=== PATIENT | male | born 1985 | race Caucasian/White ===

== ENCOUNTER 2017-04-12 12:38 | Emergency (ER) | payer OTHER ==
[2017-04-12 13:59] LABS: BASOPHIL% 0.2 % (0-2.5); EOSINOPHIL# 0.4 X10e3 (0-0.7); EOSINOPHIL% 3.3 % (0.0-7.0); HEMATOCRIT 42.7 % (38.0-50.0); HEMOGLOBIN 13.5 gm/dL (13.0-16.0); LYMPHOCYTE# 2.3 X10e3 (1.0-3.5); MEAN CELL VOLUME 73.7 FL (83-96); MEAN CORPUSCULAR HEMOGLOBIN 23.4 PG (28-34); MEAN CORPUSCULAR HGB CONC 31.7 g/dL (30-36); MEAN PLATELET VOLUME 7.7 FL (6.5-11.5); MONOCYTE# 0.6 X10e3 (0-1.0); MONOCYTE% 5.6 % (3.0-12.0); NEUTROPHIL# 7.6 X10e3 (1.5-7.1); NEUTROPHIL% 69.9 % (40-75); PLATELET COUNT 208 X10e3 (140-420); RED BLOOD COUNT 5.79 X10e (3.90-5.60); RED CELL DISTRIBUTION WIDTH 16.9 % (11.0-15.5); WHITE BLOOD COUNT 10.8 X10e3 (4.0-10.5)
[2017-04-12 14:01] LABS: DIFF IND NO
[2017-04-12 14:24] LABS: ALKALINE PHOSPHATASE 57 U/L (32-92); ALT (SGPT) 34 U/L (10-40); AMYLASE 16 U/L (0-46); AST (SGOT) 21 U/L (10-42); BILIRUBIN,TOTAL 0.5 mg/dL (0.2-2.0); BLOOD UREA NITROGEN 19 mg/dL (9-23); BUN/CREATININE RATIO 21.11; CALCIUM SERUM 9.2 mg/dL (8.4-10.2); CARBON DIOXIDE 25 mmol/L (22-31); CHLORIDE 107 mmol/L (100-111); CREATININE SERUM 0.9 mg/dL (0.6-1.4); GLOM FILT RATE Estimated 114.2 mL/min (>60); GLUCOSE FASTING 105 mg/dL (70-110); LIPASE 21 U/L (22-51); POTASSIUM 4.7 mmol/L (3.5-5.1); PROTEIN TOTAL SERUM 7.4 g/dL (6.0-8.3); SODIUM 137 mmol/L (135-145)
[2017-04-12 14:25] LABS: BILIRUBIN, DIRECT <0.1 mg/dL (0.0-0.2); BILIRUBIN,INDIRECT 0.4 mg/dL (0.0-0.9)
[2017-04-12 15:06] LABS: URINE SOURCE CLEAN CATCH
[2017-04-12 15:11] LABS: URINE APPEARANCE CLEAR; URINE BILIRUBIN NEG (NEG); URINE BLOOD NEG (NEG); URINE COLOR YELLOW; URINE GLUCOSE NEG (NEG); URINE KETONE NEG (NEG); URINE LEUKOCYTE ESTERASE NEG (NEG); URINE NITRATE NEG (NEG); URINE PROTEIN NEG (NEG); URINE SPECIFIC GRAVITY 1.027 (1.003-1.035); URINE UROBILINOGEN 0.2 MG/DL (NEG)
[2017-04-12 15:23] LABS: AMPHETAMINE POS (NEG); BARBITURATES NEG (NEG); BENZODIAZEPINES NEG (NEG); COCAINE NEG (NEG); MARIJUANA POS (NEG); OPIATES NEG (NEG); TRICYCLIC ANTIDEPRESSANTS NEG (NEG); U METHADONE POS (NEG)
[2017-04-12 15:24] LABS: CULTURE INDICATED? NO
== END 2017-04-12 16:29 | disposition home or self-care (01) ==
LOC: CED 12:38
PROVIDERS: Emergency Medicine
DX: R10.9 Unspecified abdominal pain (principal)
CPT/HCPCS: 80048; 80076; 80307; 81003; 82150; 83690; 85025; 96374; 99284; J2405

== ENCOUNTER 2017-05-05 04:27 | Emergency (ER) | payer OTHER ==
--- NOTE | ~2017-05-05 | CT99 ---
[facility] A Service of [facility] / [facility] RADIOLOGY TEXT RESULTS PATIENT: CHATO KIRK II [id number] : [birth year] UNIT #: [id number] AGE: [address]: Jose Snyder MD SEX: M ORDER DR: [id number] [facility] [address] [place], [place] [address] [id number] E MR#: [id number] [facility] #: [id number] NAME: CHATO KIRK : 1985 SEX: M STUDY DATE/TIME: 05/05/2017 7:25 UNIT: [facility] ROOM: STUDY DESCRIPTION: CT Maxillofacial Area W Cont Attending Physician: Jose Snyder M.D. Ordering Physician: Jacob Jain D.O. MEDICAL IMAGING REPORT This report is preliminary unless electronic signature is present EXAM CT maxillofacial bones. HISTORY Left upper tooth pain, swelling x40 days. Facial swelling on the left times 2 days. TECHNIQUE Thin section axial images performed through the maxillofacial bones following IV contrast. This CT exam was performed with one or more of the following radiation dose reduction techniques: automatic exposure control, adjustment of mA and/or kV according to patient size, and iterative reconstruction. FINDINGS There is severe multifocal periodontal disease and dental caries. This is most prominent involving the left upper molars with extensive destruction of teeth #17 and 18 and probably tooth 14 of the left mandibular molar. There is also extensive destruction of the right upper molars with evidence of periodontal disease and there is absence of teeth #1 and 2. Soft tissue swelling noted over the left facial soft tissues but no evidence of fluid collection or abscess. Minimal left maxillary sinus mucosal disease. Skull base unremarkable. Several moderately enlarged left submandibular lymph nodes identified, most likely reactive. Shotty anterior and posterior cervical lymphadenopathy. IMPRESSION Severe periodontal disease and extensive multifocal dental caries. Extensive destruction involving the left upper molars and one of the left lower molars compatible with severe dental caries and periodontal disease. No discrete periodontal abscess or drainable fluid collections identified, [facility] A Service of [facility] / [facility] RADIOLOGY TEXT RESULTS PATIENT: CHATO KIRK II [facility] [id number] : [birth year] UNIT #: [id number] AGE: [address]: Jose Snyder MD SEX: M ORDER DR: though there is extensive cellulitis in the overlying soft tissues as well as some reactive lymphadenopathy. Dictated by... Keaton Tijerina M.D. THIS IS AN ELECTRONICALLY VERIFIED REPORT Keaton Tijerina M.D. at 05/09/2017 9:27 AM MARCELA/gabriel TD: 05/05/2017 10:20 JOB #: [id number] MEDICAL IMAGING REPORT Page 1 of 1 COPY
[2017-05-05 06:29] LABS: BASOPHIL% 0.3 % (0-2.5); EOSINOPHIL# 0.4 X10e3 (0-0.7); EOSINOPHIL% 2.4 % (0.0-7.0); HEMATOCRIT 39.5 % (38.0-50.0); HEMOGLOBIN 12.7 gm/dL (13.0-16.0); LYMPHOCYTE# 2.9 X10e3 (1.0-3.5); LYMPHOCYTE% 19.8 % (17.0-45.0); MEAN CELL VOLUME 72.8 FL (83-96); MEAN CORPUSCULAR HEMOGLOBIN 23.4 PG (28-34); MEAN CORPUSCULAR HGB CONC 32.2 g/dL (30-36); MEAN PLATELET VOLUME 7.5 FL (6.5-11.5); MONOCYTE# 0.7 X10e3 (0-1.0); MONOCYTE% 5.1 % (3.0-12.0); NEUTROPHIL# 10.6 X10e3 (1.5-7.1); NEUTROPHIL% 72.4 % (40-75); PLATELET COUNT 201 X10e3 (140-420); RED BLOOD COUNT 5.43 X10e (3.90-5.60); RED CELL DISTRIBUTION WIDTH 17.1 % (11.0-15.5); WHITE BLOOD COUNT 14.6 X10e3 (4.0-10.5)
[2017-05-05 06:31] LABS: DIFF IND NO
[2017-05-05 07:00] LABS: CREATININE SERUM 0.8 mg/dL (0.6-1.4); GLOM FILT RATE Estimated 119.9 mL/min (>60); POTASSIUM 3.6 mmol/L (3.5-5.1)
== END 2017-05-05 09:15 | disposition home or self-care (01) ==
LOC: CED 04:27
PROVIDERS: Emergency Medicine
DX: L03.211 Cellulitis of face (principal); K02.9 Dental caries, unspecified
CPT/HCPCS: 36415; 70487; 80048; 85025; 96365; 96375; 99284; J1885; Q9967